=== PATIENT | male | born 1965 | race Two or more races ===

== ENCOUNTER 2019-11-24 01:24 | Inpatient (IN) | payer MEDICAID ==
[~2019-11-24] VITALS: Ht 175.3 cm; Wt 84.1 kg
[2019-11-24] VITALS (7 sets, daily range): BP systolic 98–190; BP diastolic 58–116; Ht 175.3 cm; Wt 84.1 kg
[2019-11-24 01:40] LABS: BASOPHILS 0.8 % (0-2); EOSINOPHILS 2.8 % (0-7); HEMATOCRIT 45.3 % (42.0-54.0); HEMOGLOBIN 15.4 g/dL (13.5-17.5); IMMATURE GRANULOCYTES 0.3 % (0-5); LYMPHOCYTES 36.6 % (15-50); MCV 91.1 fL (80.0-100.0); MEAN PLATELET VOLUME 8.8 fL (7.4-10.4); MONOCYTES 10.1 % (2-11); NEUTROPHILS 49.4 % (40-80); PLATELET COUNT 328 10x3/uL (130-400); RBC 4.97 10x6/uL (4.20-6.10); RDW 12.5 % (11.5-14.5); WBC 7.5 10x3/uL (4.8-10.8)
[2019-11-24 01:50] LABS: CALC OSMOLALITY 276 mosm/kg (275-300); CARBON DIOXIDE 28.6 mmol/L (21.0-32.0); CHLORIDE - SERUM 104 mmol/L (98-107); CREATININE - SERUM 1.1 mg/dL (0.6-1.3); GLUCOSE 101 mg/dL (74-106); POTASSIUM - SERUM 3.7 mmol/L (3.5-5.1); SODIUM 139 mmol/L (136-145); UREA NITROGEN 10 mg/dL (7-18); eGFR NON AFRICAN AMERICAN 75 mL/min (90-120)
[2019-11-24 02:07] LABS: ALBUMIN 3.8 g/dL (3.4-5.0); ALKALINE PHOSPHATASE 99 U/L (30-120); ALT (SGPT) 57 U/L (10-68); BILIRUBIN - TOTAL 0.71 mg/dL (0.2-1.3); CKMB 0.9 U/L (0.0-3.6); PROTEIN - SERUM 8.2 g/dL (6.4-8.2)
[2019-11-24 02:08] LABS: TROPONIN-I < 0.017 ng/mL (0.000-0.060)
--- NOTE | 2019-11-24 03:00 | NUR ---
PT RESTING ON BED. NO S/S OF ACUTE DISTRESS NOTED.
--- NOTE | 2019-11-24 05:20 | NUR ---
ADMIT TO ROOM 2121 AT 0400. ALERT/ORIENTED AND AMBULATORY. TELEMETRY STARTED . NONLABORED RESPIRATIONS. ADMISSION HISTORY AND ASSESSMENT COMPLETED. PT HAS ONLY BEEN HOSPITALIZED TWICE IN HIS LIFE. NO HOME MEDS ARE TAKEN. NKA. PLAN OF CARE EXPLAINED. CALL LIGHT IN REACH.
[2019-11-24 07:18] LABS: CKMB 0.9 U/L (0.0-3.6); CREATINE KINASE 103 UL (21-232)
[2019-11-24 07:19] LABS: TROPONIN-I < 0.017 ng/mL (0.000-0.060)
--- NOTE | 2019-11-24 09:30 | NUR ---
LOPRESSOR GIVEN WITH A SIP OF WATER. PT RESTING COMFORTABLY IN BED, A/O X4, RESP EVEN AND NONLABORED ON RA. RT FA IV SL. PT DENIES ANY NEEDS AT THIS TIME. CALL LIGHT IN REACH, NAD NOTED, WILL CONTINUE PLAN OF CARE.
--- NOTE | 2019-11-24 14:35 | NUR ---
650mg OF TYLENOL GIVEN FOR PAIN LEVEL OF 2/2. PT DENIES ANY OTHER NEEDS AT THIS TIME. CALL LIGHT IN REACH, NAD NOTED, WILL CONTINUE PLAN OF CARE.
[2019-11-24 16:53] LABS: CKMB 0.8 U/L (0.0-3.6); CREATINE KINASE 101 UL (21-232); TROPONIN-I < 0.017 ng/mL (0.000-0.060)
--- NOTE | 2019-11-24 17:23 | NUR ---
URINE SAMPLE COLLECTED AND TAKEN TO LAB.
[2019-11-24 18:07] LABS: BILIRUBIN NEGATIVE (NEGATIVE); GLUCOSE NEGATIVE (NEGATIVE); KETONE NEGATIVE (NEGATIVE); NITRITE NEGATIVE (NEGATIVE); UROBILINOGEN NORMAL (NORMAL)
[2019-11-24 18:10] LABS: UDS - AMPHET NEGATIVE QUAL (NEGATIVE); UDS - BARB NEGATIVE QUAL (NEGATIVE); UDS - BENZO NEGATIVE QUAL (NEGATIVE); UDS - COCAINE NEGATIVE QUAL (NEGATIVE); UDS - OPIATE NEGATIVE QUAL (NEGATIVE); UDS - PCP NEGATIVE QUAL (NEGATIVE); UDS - THC NEGATIVE QUAL (NEGATIVE)
--- NOTE | 2019-11-24 19:30 | NUR ---
REPORT RECIEVED AND INITIAL ROUNDS COMPLETED. NEW ORDERS PER DR LEDESMA FOR PT TO BE DISCHARGED OF 1829 ORDER HE PLACED.
--- NOTE | 2019-11-24 20:00 | NUR ---
PAGE TO DR HERNÁNDEZ AND REPORTED ORDER FROM DR LEDESMA TO DISCHARGE PATIENT TONIGHT. DR HERNÁNDEZ OKAYED DISCHARGE. DISCHARGE PAPERWORK COMPLETED AND REVIEWED WITH PATIENT. PT DOES NOT HAVE A RIDE TO HIS HOME IN [place]. SPOKE WITH [employer] AND SHE SPOKE WITH [employer] THAT WAS STILL IN HOUSE. APPROVAL GIVEN FROM [employer] THAT PT CAN GO HOME BY [employer] WITH A VOUCHER FOR HOSPITAL TO PAY UP TO $50. GAYLE STATES THIS WAS OKAYED PER P[facility]RITO. 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 UPDATED ON TRYING TO GET PATIENT DISCHARGED TO HOME. SHE WAS ABLE TO GET THROUGH TO THE [employer] AND ORDERED A [employer] TO TAKE PATIENT TO [place].
--- NOTE | 2019-11-24 21:50 | NUR ---
PT DISCHARGED TO HOME VIA [employer] WITH VOUCHER.
--- NOTE | 2019-11-25 09:10 | ST ---
PATIENT:BERLIN AKINS MEDICAL RECORD: [id number] SEX: M [id number] ORDER #: ADMISSION DATE: 11/24/19 AGE OF PATIENT: 54 REFERRING PHYSICIAN: INTERPRETING PHYSICIAN: FREDDY HERNÁNDEZ MD DATE OF SERVICE: 11/24/2019 PROCEDURE: Lexiscan directed nuclear stress test. PROCEDURE IN DETAIL: The patient was brought into the nuclear lab in stable condition and placed in supine position on the nuclear table. The patient had Lexiscan injected per normal protocol. The patient had no complications. Gated imaging showed the ejection fraction was preserved at 59%. SPECT imaging showed no evidence of ischemia or infarction. IMPRESSION: The patient has a normal Lexiscan directed nuclear cardiac stress test without evidence of ischemia or infarction. The patient has normal LV systolic function and ejection fraction. Recommendation: Continue medical management. TRANSINT:[id number] Voice Confirmation ID: [id number] DOCUMENT ID: [id number] FREDDY HERNÁNDEZ MD at 0910 CC: [id number] DICTATION DATE: 11/25/19 0809 BRAID MAKER: 11/25/19 0850 DIS IN 11/24/19 [address] [id number] [place] [address]
== END 2019-11-24 21:50 | disposition home or self-care (01) | DRG 313 ==
LOC: D.ER 01:24 → OBSVTIME 02:59 → D.M2 02:59
PROVIDERS: Emergency Medicine; ADMIT Internal Medicine Nephrology; ATTEND Internal Medicine Nephrology
DX: R07.9 Chest pain, unspecified (principal); I20.0 Unstable angina; F17.213 Nicotine dependence, cigarettes, with withdrawal; I10 Essential (primary) hypertension